=== PATIENT | male | born 1955 | race Native Hawaiian/Other Pacific Islander ===

== ENCOUNTER 2018-01-19 13:18 | Outpatient (CLI) | payer OTHER | END 2018-01-19 22:54 | disposition home or self-care (01) | LOC: MRI 13:18 | DX: G89.29 Other chronic pain (principal) ==

== ENCOUNTER 2018-02-03 11:41 | Outpatient (CLI) | payer OTHER ==
[2018-02-03 12:27] LABS: PLATELET COUNT 198 K/uL (142-355)
[2018-02-03 12:40] LABS: POTASSIUM 4.2 mmol/L (3.6-5.2)
== END 2018-02-03 21:07 | disposition home or self-care (01) ==
LOC: LABW 11:41
PROVIDERS: Nurse Practitioner
DX: Z12.5 Encounter for screening for malignant neoplasm of prostate (principal); E11.9 Type 2 diabetes mellitus without complications; R53.83 Other fatigue; R79.89 Other specified abnormal findings of blood chemistry
CPT/HCPCS: 36415; 80053; 83036; 84153; 84402; 84403; 84439; 84443; 85027